=== PATIENT | female | born 1970 | race Caucasian/White ===

== ENCOUNTER 2020-02-25 03:56 | Emergency (ER) | payer MEDICAID ==
[~2020-02-25] VITALS: Ht 157.5 cm; Wt 92.5 kg
[2020-02-25 04:07] VITALS: Ht 157.5 cm; Wt 92.5 kg
[2020-02-25 05:11] VITALS: BP 140/82
== END 2020-02-25 05:00 | disposition home or self-care (01) ==
LOC: ED 03:56
DX: R56.9 Unspecified convulsions (principal); I10 Essential (primary) hypertension; Z76.0 Encounter for issue of repeat prescription